=== PATIENT | female | born 1975 | race Caucasian/White ===

== ENCOUNTER 2024-11-23 05:50 | Day surgery (SDC) | payer MEDICARE, OTHER ==
[2024-11-20 10:35] VITALS: BP 157/100
[~2024-11-23] VITALS: Ht 127 cm; Wt 93.6 kg
[~2024-11-23 05:50] MED LIST: LACTATED RINGER'S 1,000 ML IV SCH; ZOLOFT100 MG PO
[2024-11-23 06:02] VITALS: BP 139/97
--- NOTE | 2024-11-23 06:49 | NUR ---
0550 pt arrived to day surgery ambulitory with walker, with son and mom at side. pt dressed on own, pt used stool to get into bed. walker in room at bedside.
[2024-11-23] MEDS ORDERED: LIDOCAINE HCL 1% 5 ML SDV INJ ONE (07:00)
[2024-11-23] MEDS ORDERED: IBLOOD GLUCOSE TEST STRIP 1 EA TEST VI PRN (07:00)
[2024-11-23] MEDS ORDERED: LIDOCAINE HCL 2% 5 ML SDV ONE (07:20)
[2024-11-23] MEDS ORDERED: propofoL 200 MG/20 ML VIAL ONE ×2 (07:20→07:56)
--- NOTE | 2024-11-23 07:33 | NUR ---
VISITED DURING SPIRITUAL CARE ROUNDS. PT ADMITTED SOME NERVOUSNESS BUT STATED "OK." FURNITURE MANAGER PROVIDED ANXIETY CONTAINMENT, HOSPITALITY, PRAYER, FACILITATED INTERACTION WITH THERAPY ANIMAL. PT EXPRESSED GRATITUDE, APPEARED TO BE LESS ANXIOUS.
--- NOTE | 2024-11-23 08:16 | NUR ---
11/23/24 0816 Nadine Mcgarry 0812-PATIENT ARRIVED TO PACU ON 6L MASK RR EVEN LAYING LEFT LATERAL. PATIENT NONAROUSABLE. SR. IVF INFUSING. ABDOMEN SOFT.
[2024-11-23 08:45] VITALS: BP 136/81
--- NOTE | 2024-11-23 13:15 | OR ---
[facility] [address], [place] [address] Signed DATE OF OPERATION: 11/23/2024 SURGEON: Ash Sotomayor MD PREOPERATIVE DIAGNOSIS: Colon screening. POSTOPERATIVE DIAGNOSIS: Normal colon to cecum. PROCEDURE: Total colonoscopy to cecum. ANESTHESIA: Intravenous sedation, propofol, Jose Escobar CRNA INDICATIONS FOR THE PROCEDURE: This 49-year-old white woman is a patient of Dr. Lionel Rucker and referred for colon screening. She has no symptoms of bleeding, diarrhea, or constipation and no family history of colon cancer. 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 FINDINGS: The prep was excellent. Complete colonoscopy was undertaken of the cecum with full intubation of the cecum. There was no sign of polyps, diverticular formation, colitis, or cancer. DESCRIPTION OF PROCEDURE: The patient was brought to the endoscopy suite and placed in lateral decubitus position given intravenous sedation with propofol infusional technique. Digital rectal examination was normal. An Olympus video colonoscope was passed into the rectum and manipulated throughout the colon ultimately intubating the cecum itself. The ileocecal valve and appendiceal orifice were normal. Scope was withdrawn from that point and examination throughout showed no sign of abnormality specifically no polyps, diverticular formation, colitis, or cancer. Retroflexed view was normal as well. The scope was removed. The patient was taken to the recovery room in good condition. CONCLUDING DIAGNOSIS: Electronically Signed By: ASH SOTOMAYOR MD 11/23/24 1315 PATIENT NAME: SUNDAY DAVIES OPERATIVE REPORT DATE OF : 77 REPORT #: [id number] PHYSICIAN: ASH SOTOMAYOR MD PCP: LIONEL RUCKER MD REPORT IS CONFIDENTIAL AND NOT TO BE RELEASED WITHOUT AUTHORIZATION [address] [place], [place] [address] Signed Normal colon. PLAN: Recommend repeat colonoscopy in 10 years or sooner if symptoms should develop. She will return to the ongoing care of Dr. Rucker. MD PHILIPPE Ayala/MODL /[id number] cc: Lionel Rucker MD Copies: LIONEL RUCKER DMD ~ Electronically Signed By: ASH SOTOMAYOR MD 11/23/24 1315 PATIENT NAME: SUNDAY DAVIES OPERATIVE REPORT DATE OF : 77 REPORT #: [id number] PHYSICIAN: ASH SOTOMAYOR MD PCP: LIONEL RUCKER MD REPORT IS CONFIDENTIAL AND NOT TO BE RELEASED WITHOUT AUTHORIZATION
== END 2024-11-23 08:55 | disposition home or self-care (01) ==
LOC: DS 05:50
PROVIDERS: ATTEND Surgery
PROC: 0DJD8ZZ Inspection of Lower Intestinal Tract, Via Natural or Artificial Opening Endoscopic (ICD-10-PCS; principal; 2024-11-23 07:30)
DX: Z12.11 Encounter for screening for malignant neoplasm of colon (principal); F32.A Depression, unspecified; Q77.4 Achondroplasia; L98.9 Disorder of the skin and subcutaneous tissue, unspecified; G47.30 Sleep apnea, unspecified; Z98.2 Presence of cerebrospinal fluid drainage device; Z98.890 Other specified postprocedural states; Z79.899 Other long term (current) drug therapy
CPT/HCPCS: 00812; J2003; J2704; J7121